=== PATIENT | female | born 1960 | race Caucasian/White ===

== ENCOUNTER 2019-07-28 09:47 | Day surgery (SDC) | payer BC ==
[2019-07-24 10:49] VITALS: BMI 29.2
--- NOTE | 2019-07-27 09:45 | HP ---
Admitting History and Physical - Primary Care Physician PCP: Alf Normna - Admission Chief Complaint: Right breast DCIS History of Present Illness: Patient is a 58 yo female S/P partial mastectomy (07/13) for DCIS, who was noted to have positive margins on final pathology. Inferior margin was positive and medial and lateral margins were close. Patient is now presenting for excision of positive margins. History Source: Patient Limitations to Obtaining History: No Limitations - Past Medical History Endocrine: Yes: Diabetes Mellitus (insulin dependent) - Smoking History Smoking history: Never smoked Have you smoked in the past 12 months: No - Alcohol/Substance Use Hx Alcohol Use: Yes Home Medications - Allergies Allergies/Adverse Reactions: Allergies Allergy/AdvReac Type Severity Reaction Status Date / Time adhesive Allergy Severe Rash Verified 07/24/19 10:41 No Known Drug Allergies Allergy Verified 07/24/19 10:51 - Home Medications Home Medications: Ambulatory Orders Atorvastatin Ca [Lipitor] 20 mg PO HS 07/24/19 Citalopram Hydrobromide [Celexa -] 20 mg PO DAILY 07/24/19 Insulin Aspart [Novolog] 13 unit SQ BID 07/24/19 Insulin NPH Human Isophane [Novolin N] 13 units SQ BID 07/24/19 Family Medical History Family History: Unremarkable Review of Systems - Review of Systems Constitutional: reports: No Symptoms Cardiovascular: reports: No Symptoms Respiratory: reports: No Symptoms Physical Examination Constitutional: Yes: Well Nourished, Calm Breast(s): Yes: Other (Right breast incision is clean without discharge or erythema noted.) Problem List - Problems (1) Ductal carcinoma in situ (DCIS) of right breast Code(s): D05.11 - INTRADUCTAL CARCINOMA IN SITU OF RIGHT BREAST Assessment/Plan Right breast reexcision of positive margins.
[2019-07-28] MEDS ORDERED: PROPOFOL 20 ML ONE (12:58)
[2019-07-28] MEDS ORDERED: MIDAZOLAM HCL 2 MG/2 ML SINGLE DOSE VIAL ONE (12:58)
[2019-07-28] MEDS ORDERED: BUPIVACAINE HCL 0.25% 125 MG/50 ML VIAL ONE (13:06)
[2019-07-28] MEDS ORDERED: ceFAZolin SODIUM 1 GM VIAL ONE ×2 (13:38→13:39)
[2019-07-28] MEDS ORDERED: ONDANSETRON 4 MG/2 ML VIAL ONE (13:42)
[2019-07-28] MEDS ORDERED: DEXAMETHASONE SOD PHOSPHATE 4 MG/1 ML VIAL ONE (13:42)
[2019-07-28] MEDS ORDERED: KETOROLAC TROMETHAMINE 30 MG/1 ML VIAL ONE (14:11)
[2019-07-28] MEDS ORDERED: BUPIVACAINE HCL/PF 0.25% (2.5MG/ML) 10 ML VIAL IJ ONE (14:20)
[2019-07-28] MEDS ORDERED: oxyCODONE HCL 5 MG TABLET PO PRN (14:27)
[2019-07-28] MEDS ORDERED: ONDANSETRON 4 MG/2 ML VIAL IVPUSH PRN ×2 (14:27→14:43)
[2019-07-28] MEDS ORDERED: LACTATED RINGERS SOLUTION 1,000 ML IV SCH (14:30)
[2019-07-28] MEDS ORDERED: KETOROLAC TROMETHAMINE 30 MG/1 ML VIAL IVPUSH PRN (14:43)
[2019-07-28] MEDS ORDERED: DEXTROSE 5%-0.45% SALINE 1,000 ML IV SCH (14:45)
[2019-07-28] MEDS ORDERED: oxyCODONE HCL 5 MG TABLET ONE (15:42)
[2019-07-28] MEDS ORDERED: oxyCODONE HCL 5 MG TABLET PO ONE (15:45)
[2019-07-28 16:15] VITALS: BP 133/75
[2019-07-28 16:33] VITALS: PULSE 78; TEMP 98.1
--- NOTE | 2019-07-28 18:59 | OP ---
DATE OF OPERATION: 07/28/2019 PREOPERATIVE DIAGNOSIS: Right breast ductal carcinoma in situ. POSTOPERATIVE DIAGNOSIS: Right breast ductal carcinoma in situ. PROCEDURE: Re-excision margins in the right breast medial, lateral, and inferior margins. ANESTHESIA: General laryngeal mask airway anesthesia. PRIMARY SURGEON: Mariano Nomran MD SENIOR MEDICAL DIRECTOR: MAXINE Ott COMPLICATIONS: There were no complications. INDICATIONS: Briefly, the patient is a 58-year-old G2, P2 premenopausal female of [facility] descent with no family history of breast or ovarian cancer. She was found to have some right breast posteromedial calcifications and underwent the stereotactic core biopsy in May 2019, which showed DCIS, which was ER/AK positive. The clip actually turned out to be anterior to the calcifications, but MRI showed localized disease measuring about 1.4 cm. She underwent the right breast partial mastectomy with bracketed needle localizations on July 13, 2019, showing extensive DCIS, and the inferior margin was positive with close margins on the medial and lateral aspects. She was advised on undergoing a re-excision versus possible mastectomy and chose to undergo re-excision. She was brought in today at [facility] for a re-examination for margins on the right breast. DESCRIPTION OF PROCEDURE: She was brought in through ambulatory surgery, and in the holding area, site verification was made, and informed consent was obtained. She was brought into the operating room and laid on the OR table in a supine position. Venodynes were placed on her lower extremities. She received a gram of Ancef prior to incision. She underwent general laryngeal mask airway anesthesia, and the right breast was sterilely prepped and draped in the usual fashion. Prior Dermabond was removed, and the incision was re-opened on the upper inner aspect of the right breast. Dissection was undertaken into the previous wide excision cavity sites, and separate margins were then taken on the medial and lateral aspects with a separate, more extreme margin taken on the lateral aspect as well and an inferior margin was also re-excised. All specimens had sutures placed to marilyn the biopsy cavity side, and all 4 specimens were sent down to Pathology in formalin. Hemostasis was achieved, and the wound was copiously irrigated. A 5 x 4-cm tissue transfer closure was then accomplished by again undermining the breast tissue and bringing it into the wound and reapproximating the breast tissue using 2-0 plain suture. The skin was closed using interrupted 3-0 deep dermal Vicryl suture and a running 4-0 subcuticular Biosyn suture. Dermabond was again placed over the wound due to an adhesive allergy. Sterile dressing was applied, and she was placed in a Surgi-Bra postoperatively. The laryngeal mask airway tube was removed at the end of the case. All sponge and needle counts were correct at the end of the case, and estimated blood loss was minimal. She will be recovered in the post anesthesia care unit and then be discharged home the same day once discharge criteria are met. She is to follow up in the office in 1 week for a formal wound pathology check. MARIANO NORMAN M.D. [id number]
--- NOTE | 2019-07-31 13:06 | PATH ---
Surgical Pathology Report Patient Name: ZAIRA JUAN [facility]. Rec. #: [id number] /Age/Gender: 1960 (Age: 58) / F Account: [id number] Location: [facility] AMBUL[facility]ORY Taken: 07/28/2019 Received: 07/28/2019 Reported: 07/31/2019 Physicians: Alf Norman M.D. Specimen(s) Received A: RIGHT BREAST MEDIAL MARGIN B: RIGHT BREAST LATERAL MARGIN C: RIGHT BREAST FURTHEST LATERAL MARGIN D: RIGHT BREAST INFERIOR MARGIN Clinical History DCIS previous excision with close medial and lateral margins and positive inferior margin Final Diagnosis A. RIGHT BREAST MEDIAL MARGIN, EXCISION: RESIDUAL DUCTAL CARCINOMA IN SITU (DCIS), LOW NUCLEAR GRADE. DCIS IS AT 2 MM FROM THE FINAL MARGIN. THE FINAL MARGIN IS NEGATIVE FOR CARCINOMA. REACTIVE CHANGES AT PRIOR BIOPSY SITE IDENTIFIED. B. RIGHT BREAST LATERAL MARGIN, EXCISION: BREAST TISSUE WITH ATYPICAL DUCTAL HYPERPLASIA (ADH). REACTIVE CHANGES AT PRIOR BIOPSY SITE IDENTIFIED. NEGATIVE FOR CARCINOMA. C. RIGHT BREAST FURTHEST LATERAL MARGIN, EXCISION: BENIGN BREAST TISSUE. REACTIVE CHANGES AT PRIOR BIOPSY SITE IDENTIFIED. D. RIGHT BREAST INFERIOR MARGIN, EXCISION: BREAST TISSUE WITH ATYPICAL DUCTAL HYPERPLASIA (ADH). REACTIVE CHANGES AT PRIOR BIOPSY SITE IDENTIFIED. NEGATIVE FOR CARCINOMA. Electronically Signed Gerry Perez M.D. Gross Description A. Received in formalin labeled "right breast medial margin," is a 2.7 x 2.3 x 1.0 cm portion of fibroadipose tissue with a suture marking the biopsy cavity side, per the surgeon. The new margin is inked blue and the specimen is serially sectioned. The specimen is entirely submitted in 3 cassettes. B. Received in formalin labeled "right breast lateral margin," is a 1.7 x 1.1 x 0.7 cm portion of fibroadipose tissue with a suture marking the biopsy cavity side, per the surgeon. The new margin is inked blue and the specimen is serially sectioned. The specimen is entirely submitted in 2 cassettes. C. Received in formalin labeled "right breast farthest lateral margin," is a 3.0 x 1.5 x 0.9 cm portion of fibroadipose tissue with a suture marking the biopsy cavity side, per the surgeon. The new margin is inked blue and the specimen is serially sectioned. The specimen is entirely submitted in 3 cassettes. D. Received in formalin labeled "right breast inferior margin," is a 2.7 x 2.4 x 1.1 cm portion of fibroadipose tissue with a suture marking the biopsy cavity side, per the surgeon. The new margin is inked blue and the specimen is serially sectioned. The specimen is entirely and sequentially submitted in 4 cassettes. 07/29/2019 [facility]07/29/2019
== END 2019-07-28 16:25 | disposition home or self-care (01) ==
LOC: FASU 09:47
PROVIDERS: ATTEND Surgery Surgical Oncology
PROC: 0HBT0ZZ Excision of Right Breast, Open Approach (ICD-10-PCS; principal; 2019-07-28 13:41)
DX: D05.11 Intraductal carcinoma in situ of right breast (principal)
CPT/HCPCS: 82962; 88307-TC; 94760